=== PATIENT | female | born 1975 | race Caucasian/White ===

== ENCOUNTER 2018-01-23 02:39 | Emergency (ER) | payer MEDICARE, BC | END 2018-01-23 05:27 | disposition home or self-care (01) | LOC: FTE 02:39 | DX: J20.9 Acute bronchitis, unspecified (principal); J45.909 Unspecified asthma, uncomplicated; F17.210 Nicotine dependence, cigarettes, uncomplicated | CPT/HCPCS: 99284 ==

== ENCOUNTER 2018-04-07 23:27 | Emergency (ER) | payer MEDICARE, BC | END 2018-04-08 01:25 | disposition left against medical advice (07) | LOC: FTE 23:27 | DX: Z53.21 Procedure and treatment not carried out due to patient leaving prior to being seen by health care provider (principal) ==

== ENCOUNTER 2018-04-14 23:41 | Emergency (ER) | payer OTHER, BC | END 2018-04-15 03:50 | disposition home or self-care (01) | LOC: FTE 23:41 | DX: M25.511 Pain in right shoulder (principal); J45.909 Unspecified asthma, uncomplicated; F17.210 Nicotine dependence, cigarettes, uncomplicated | CPT/HCPCS: 73030; 73030-RT; 99283-25 ==

== ENCOUNTER 2018-05-18 02:19 | Emergency (ER) | payer OTHER, BC | END 2018-05-18 03:35 | disposition home or self-care (01) | LOC: FTE 02:19 | DX: R51 Headache (principal); J45.909 Unspecified asthma, uncomplicated; F17.210 Nicotine dependence, cigarettes, uncomplicated | CPT/HCPCS: 99284 ==

== ENCOUNTER 2019-01-27 15:11 | Emergency (ER) | payer SELFPAY, BC, OTHER | END 2019-01-27 16:18 | disposition left against medical advice (07) | LOC: E/R 16:18 | DX: Z53.21 Procedure and treatment not carried out due to patient leaving prior to being seen by health care provider (principal) ==